=== PATIENT | male | born 1940 | race Caucasian/White ===

== ENCOUNTER 2022-03-05 13:56 | Inpatient (IN) | payer OTHER ==
[2022-03-05 14:30] VITALS: BMI 24.2
[2022-03-05 15:24] LABS: BASO % 0.5 % (0-2.0); EOS % 0.1 % (0-4.5); HEMATOCRIT 21.5 % (35.4-49); HEMOGLOBIN 7.5 GM/dL (11.7-16.9); LYMPH % 7.6 % (8-40); MCH 33.9 pg (25.7-33.7); MCHC 35.1 g/dl (32.0-35.9); MEAN CELL VOLUME 96.8 fl (80-96); MEAN PLT VOLUME 7.9 fl (7.5-11.1); MONO % 6.6 % (3.8-10.2); NEUT % 85.2 % (42.8-82.8); PLATELET COUNT 204 10^3/uL (134-434); RBC 2.22 M/mm3 (4.00-5.60); WHITE BLOOD COUNT 9.6 K/mm3 (4.0-10.0)
[2022-03-05 15:43] LABS: CHLORIDE 116 mmol/L (98-107); SODIUM 139 mmol/L (136-145)
[2022-03-05 15:45] LABS: CALCIUM 8.4 mg/dL (8.5-10.1)
[2022-03-05 15:46] LABS: BLOOD UREA NITROGEN 99.5 mg/dL (7-18); CO2 14 mmol/L (21-32); GLUCOSE,RANDOM 147 mg/dL (74-106)
[2022-03-05 15:49] LABS: CREATININE 3.1 mg/dL (0.55-1.3); SGOT/AST 8 U/L (15-37); SGPT/ALT 16 U/L (13-61)
[2022-03-05 15:50] LABS: TOT PROT 6.3 g/dl (6.4-8.2)
[2022-03-05 15:51] LABS: BILIRUBIN,TOTAL 1.4 mg/dL (0.2-1)
[2022-03-05 15:52] LABS: ALK PHOS 63 U/L (45-117)
[2022-03-05 15:57] LABS: ANION GAP 10 MMOL/L (8-16)
[2022-03-05] MEDS ORDERED: CALCIUM GLUC IN NACL, ISO-OSM 1 GM/50 ML BAG IVPB ONE ×2 (16:03→16:12)
[2022-03-05] MEDS ORDERED: DEXTROSE 50%-WATER - 25 GM/50 ML VIAL IVPUSH ONE ×2 (16:05→16:32)
[2022-03-05] MEDS ORDERED: INSULIN REGULAR HUMAN 100 UNITS/ML *VIAL IVPUSH ONE ×3 (16:06→16:32)
[2022-03-05] MEDS ORDERED: DEXTROSE 50%-WATER 25 GM/50 ML DISP.SYRIN ONE ×2 (16:11→16:37)
[2022-03-05] MEDS ORDERED: INSULIN REGULAR HUMAN 100 UNITS/ML *VIAL ONE ×2 (16:12→16:38)
[2022-03-05 16:29] LABS: MAGNESIUM 2.9 mg/dL (1.8-2.4)
[2022-03-05] MEDS ORDERED: SODIUM ZIRCONIUM CYCLOSILICATE (LOKELMA) 5 GM PACKET PO SCH ×2 (16:45→17:02)
[2022-03-05] MEDS ORDERED: SODIUM CHLORIDE 0.9% 500 ML INFUS.BAG IV ONE (16:46)
[2022-03-05] MEDS ORDERED: FUROSEMIDE 40 MG/4 ML INJECTABLE VIAL IVPUSH ONE (16:58)
[2022-03-05] MEDS ORDERED: SODIUM BICARBONATE 8.4% 50 MEQ/50 ML DISP.SYRIN IVPUSH ONE (17:09)
[2022-03-05] MEDS ORDERED: SODIUM BICARBONATE 8.4% - 50 ML ONE (18:17)
[2022-03-05] MEDS ORDERED: FUROSEMIDE 40 MG/4 ML INJECTABLE VIAL ONE (18:17)
[2022-03-05] MEDS ORDERED: ALBUTEROL SO4 2.5/IPRATROPIUM 0.5 INH SOL 3 ML VIAL.NEB. NEB ONE (18:17)
[2022-03-05] MEDS: ALBUTEROL SO4 0.083% IH SOL 2.5 MG/3 ML VIAL.NEB. NEB SCH ×4 (18:30→19:26)
[2022-03-05] MEDS ORDERED: LACTATED RINGERS SOLUTION 1,000 ML/1,000 ML INFUS.BAG IV SCH (18:30)
[2022-03-05 19:23] LABS: INR 1.11 (0.83-1.09); PROTHROMBIN TIME (PATIENT) 12.8 SEC (9.7-13.0)
[2022-03-05 19:26] LABS: ACTIVATED PTT 30.3 SECONDS (25.2-36.5)
[2022-03-05 19:27] LABS: IRON SERUM 104 ug/dL (50-175); TOTAL IRON BINDING CAPACITY 197 ug/dL (250-450)
[2022-03-05 20:35] LABS: URINE APPEARANCE CLEAR; URINE BILIRUBIN NEGATIVE (NEGATIVE); URINE COLOR YELLOW; URINE GLUCOSE (UA) NEGATIVE (NEGATIVE); URINE KETONE NEGATIVE (NEGATIVE); URINE LEUK ESTERASE NEGATIVE (NEGATIVE); URINE NITRITE NEGATIVE (NEGATIVE); URINE PROTEIN NEGATIVE (NEGATIVE); URINE UROBILINOGEN 0.2 mg/dL (0.2-1.0)
[2022-03-05] MEDS: MIRTAZAPINE 15 MG TABLET (FP) PO SCH (22:06)
[2022-03-05] MEDS: MEMANTINE HCL 10 MG TABLET (FP) PO SCH (22:06)
[2022-03-06 07:27] LABS: HEMATOCRIT 15.8 % (35.4-49); MCH 34.1 pg (25.7-33.7); MCHC 36.1 g/dl (32.0-35.9); MEAN CELL VOLUME 94.3 fl (80-96); MEAN PLT VOLUME 7.8 fl (7.5-11.1); PLATELET COUNT 150 10^3/uL (134-434); RBC 1.68 M/mm3 (4.00-5.60); RDW 16.2 % (11.9-15.9); WHITE BLOOD COUNT 3.6 K/mm3 (4.0-10.0)
[2022-03-06 07:56] LABS: CALCIUM 8.4 mg/dL (8.5-10.1)
[2022-03-06 07:57] LABS: ALBUMIN 3.3 g/dl (3.4-5.0); BLOOD UREA NITROGEN 97.6 mg/dL (7-18); MAGNESIUM 2.7 mg/dL (1.8-2.4)
[2022-03-06 08:00] LABS: CREATININE 2.3 mg/dL (0.55-1.3); PHOSPHOROUS 4.8 mg/dL (2.5-4.9)
[2022-03-06 08:01] LABS: TOT PROT 5.3 g/dl (6.4-8.2)
[2022-03-06 08:25] LABS: HEMOGLOBIN 5.7 GM/dL (11.7-16.9)
[2022-03-06] MEDS ORDERED: SODIUM CHLORIDE 500 ML IV STA (09:30)
[2022-03-06] MEDS ORDERED: LACTATED RINGERS SOLUTION 1,000 ML/1,000 ML INFUS.BAG IV SCH (09:45)
[2022-03-06] MEDS: MEMANTINE HCL 10 MG TABLET (FP) PO SCH ×2 (09:45→22:16)
[2022-03-06] MEDS: DONEPEZIL HCL 10 MG TABLET (FP) PO SCH (09:45)
[2022-03-06] MEDS ORDERED: NIFEdipine E.R. 90 MG TABLET PO SCH (10:00)
[2022-03-06] MEDS ORDERED: SODIUM ZIRCONIUM CYCLOSILICATE (LOKELMA) 5 GM PACKET PO ONE ×2 (12:45→15:53)
[2022-03-06 17:29] LABS: ANISOCYTOSIS 2+; MACROCYTOSIS 0
[2022-03-06 17:45] LABS: LDH 108 U/L (87-246)
[2022-03-06] MEDS: MIRTAZAPINE 15 MG TABLET (FP) PO SCH (22:16)
[2022-03-07 07:23] LABS: BASO % 0.7 % (0-2.0); EOS % 1.2 % (0-4.5); HEMATOCRIT 24.6 % (35.4-49); HEMOGLOBIN 8.9 GM/dL (11.7-16.9); LYMPH % 20.3 % (8-40); MCH 31.5 pg (25.7-33.7); MCHC 36.1 g/dl (32.0-35.9); MEAN PLT VOLUME 7.8 fl (7.5-11.1); MONO % 9.9 % (3.8-10.2); NEUT % 67.9 % (42.8-82.8); PLATELET COUNT 159 10^3/uL (134-434); RBC 2.82 M/mm3 (4.00-5.60); RDW 24.7 % (11.9-15.9)
[2022-03-07 07:30] LABS: MEAN CELL VOLUME 87.2 fl (80-96)
[2022-03-07 07:45] LABS: CALCIUM 8.2 mg/dL (8.5-10.1)
[2022-03-07 07:46] LABS: ALBUMIN 3.4 g/dl (3.4-5.0); MAGNESIUM 2.3 mg/dL (1.8-2.4)
[2022-03-07 07:49] LABS: CREATININE 1.3 mg/dL (0.55-1.3); PHOSPHOROUS 3.3 mg/dL (2.5-4.9)
[2022-03-07] MEDS ORDERED: SODIUM ZIRCONIUM CYCLOSILICATE (LOKELMA) 5 GM PACKET PO ONE (07:49)
[2022-03-07 07:50] LABS: BILIRUBIN,TOTAL 2.1 mg/dL (0.2-1); TOT PROT 5.1 g/dl (6.4-8.2)
[2022-03-07 07:54] LABS: BLOOD UREA NITROGEN 58.2 mg/dL (7-18)
[2022-03-07 09:18] LABS: ANISOCYTOSIS 2+; MACROCYTOSIS 1+; OVALOCYTE 1+
[2022-03-07] MEDS: DONEPEZIL HCL 10 MG TABLET (FP) PO SCH (10:15)
[2022-03-07] MEDS: MEMANTINE HCL 10 MG TABLET (FP) PO SCH ×2 (10:16→21:10)
[2022-03-07] MEDS ORDERED: QUEtiapine FUMARATE 25 MG TABLET PO STA (14:51)
[2022-03-07 15:29] LABS: BASO % 0.6 % (0-2.0); EOS % 1.2 % (0-4.5); HEMATOCRIT 25.4 % (35.4-49); LYMPH % 17.7 % (8-40); MCHC 35.4 g/dl (32.0-35.9); MEAN CELL VOLUME 87.4 fl (80-96); MEAN PLT VOLUME 6.9 fl (7.5-11.1); MONO % 10.8 % (3.8-10.2); NEUT % 69.7 % (42.8-82.8); PLATELET COUNT 155 10^3/uL (134-434); RBC 2.91 M/mm3 (4.00-5.60); RDW 23.8 % (11.9-15.9); WHITE BLOOD COUNT 5.1 K/mm3 (4.0-10.0)
[2022-03-07] MEDS: QUEtiapine FUMARATE 25 MG TABLET PO SCH (21:10)
[2022-03-07] MEDS: MIRTAZAPINE 15 MG TABLET (FP) PO SCH (21:10)
[2022-03-08 09:04] LABS: BASO % 0.7 % (0-2.0); EOS % 2.1 % (0-4.5); HEMATOCRIT 25.6 % (35.4-49); HEMOGLOBIN 9.1 GM/dL (11.7-16.9); LYMPH % 14.2 % (8-40); MCH 31.3 pg (25.7-33.7); MCHC 35.6 g/dl (32.0-35.9); MEAN PLT VOLUME 7.5 fl (7.5-11.1); MONO % 9.6 % (3.8-10.2); NEUT % 73.4 % (42.8-82.8); PLATELET COUNT 160 10^3/uL (134-434); RBC 2.91 M/mm3 (4.00-5.60); RDW 23.2 % (11.9-15.9); WHITE BLOOD COUNT 4.8 K/mm3 (4.0-10.0)
[2022-03-08] MEDS: MEMANTINE HCL 10 MG TABLET (FP) PO SCH ×2 (09:15→22:20)
[2022-03-08] MEDS: SODIUM ZIRCONIUM CYCLOSILICATE (LOKELMA) 5 GM PACKET PO SCH (09:15)
[2022-03-08] MEDS: DONEPEZIL HCL 10 MG TABLET (FP) PO SCH (09:15)
[2022-03-08 09:38] LABS: CALCIUM 8.4 mg/dL (8.5-10.1)
[2022-03-08 09:39] LABS: ALBUMIN 3.5 g/dl (3.4-5.0); BLOOD UREA NITROGEN 41.1 mg/dL (7-18); MAGNESIUM 2.2 mg/dL (1.8-2.4)
[2022-03-08 09:42] LABS: BILIRUBIN,TOTAL 1.7 mg/dL (0.2-1); CREATININE 1.2 mg/dL (0.55-1.3); PHOSPHOROUS 3.3 mg/dL (2.5-4.9)
[2022-03-08 09:43] LABS: TOT PROT 5.3 g/dl (6.4-8.2)
[2022-03-08 18:13] LABS: BILIRUBIN,DIRECT 0.3 mg/dL (0.0-0.2)
[2022-03-08] MEDS: QUEtiapine FUMARATE 25 MG TABLET PO SCH (22:21)
[2022-03-08] MEDS: MIRTAZAPINE 15 MG TABLET (FP) PO SCH (22:21)
[2022-03-09 08:10] LABS: BASO % 0.6 % (0-2.0); EOS % 2.3 % (0-4.5); HEMATOCRIT 24.2 % (35.4-49); HEMOGLOBIN 8.8 GM/dL (11.7-16.9); MCH 31.8 pg (25.7-33.7); MCHC 36.2 g/dl (32.0-35.9); MEAN CELL VOLUME 87.7 fl (80-96); MEAN PLT VOLUME 7.7 fl (7.5-11.1); MONO % 10.5 % (3.8-10.2); NEUT % 66.6 % (42.8-82.8); PLATELET COUNT 165 10^3/uL (134-434); RBC 2.76 M/mm3 (4.00-5.60); RDW 22.7 % (11.9-15.9); WHITE BLOOD COUNT 4.5 K/mm3 (4.0-10.0)
[2022-03-09 08:22] LABS: CALCIUM 8.3 mg/dL (8.5-10.1)
[2022-03-09 08:23] LABS: ALBUMIN 3.2 g/dl (3.4-5.0); BLOOD UREA NITROGEN 36.8 mg/dL (7-18); MAGNESIUM 2.2 mg/dL (1.8-2.4)
[2022-03-09 08:26] LABS: CREATININE 1.2 mg/dL (0.55-1.3); PHOSPHOROUS 3.6 mg/dL (2.5-4.9)
[2022-03-09 08:28] LABS: BILIRUBIN,TOTAL 1.1 mg/dL (0.2-1)
[2022-03-09] MEDS: DONEPEZIL HCL 10 MG TABLET (FP) PO SCH (10:01)
[2022-03-09] MEDS: MEMANTINE HCL 10 MG TABLET (FP) PO SCH ×2 (10:01→21:11)
[2022-03-09] MEDS: SODIUM ZIRCONIUM CYCLOSILICATE (LOKELMA) 5 GM PACKET PO SCH (10:02)
[2022-03-09] MEDS: QUEtiapine FUMARATE 25 MG TABLET PO SCH (21:11)
[2022-03-09] MEDS: MIRTAZAPINE 15 MG TABLET (FP) PO SCH (21:11)
[2022-03-10 07:23] LABS: ALBUMIN 3.2 g/dl (3.4-5.0); BLOOD UREA NITROGEN 30.3 mg/dL (7-18); CALCIUM 8.6 mg/dL (8.5-10.1); MAGNESIUM 2.2 mg/dL (1.8-2.4)
[2022-03-10 07:24] LABS: BASO % 0.4 % (0-2.0); HEMATOCRIT 25.4 % (35.4-49); HEMOGLOBIN 9.1 GM/dL (11.7-16.9); LYMPH % 16.4 % (8-40); MEAN CELL VOLUME 88.9 fl (80-96); MEAN PLT VOLUME 7.7 fl (7.5-11.1); MONO % 11.6 % (3.8-10.2); NEUT % 69.6 % (42.8-82.8); PLATELET COUNT 156 10^3/uL (134-434); RBC 2.85 M/mm3 (4.00-5.60); RDW 22.5 % (11.9-15.9)
[2022-03-10 07:25] LABS: CREATININE 1.1 mg/dL (0.55-1.3)
[2022-03-10 07:27] LABS: PHOSPHOROUS 3.6 mg/dL (2.5-4.9)
[2022-03-10 07:28] LABS: BILIRUBIN,TOTAL 1.1 mg/dL (0.2-1)
[2022-03-10] MEDS: MEMANTINE HCL 10 MG TABLET (FP) PO SCH ×2 (09:54→21:53)
[2022-03-10] MEDS: DONEPEZIL HCL 10 MG TABLET (FP) PO SCH (09:54)
[2022-03-10 21:28] VITALS: PULSE 80
[2022-03-10] MEDS: MIRTAZAPINE 15 MG TABLET (FP) PO SCH (21:53)
[2022-03-10] MEDS: QUEtiapine FUMARATE 25 MG TABLET PO SCH (21:53)
[2022-03-11 09:12] VITALS: BP 142/59; RESP 16; TEMP 98.5
[2022-03-11] MEDS: DONEPEZIL HCL 10 MG TABLET (FP) PO SCH (09:37)
[2022-03-11] MEDS: MEMANTINE HCL 10 MG TABLET (FP) PO SCH (09:37)
== END 2022-03-11 12:36 | disposition home or self-care (01) | DRG 812 ==
LOC: JER 13:56 → JERBED 16:48 → J4W 20:51
PROVIDERS: ADMIT Internal Medicine; ATTEND Internal Medicine
PROC: 30233N1 Transfusion of Nonautologous Red Blood Cells into Peripheral Vein, Percutaneous Approach (ICD-10-PCS; principal; 2022-03-06)
DX: D62 Acute posthemorrhagic anemia (principal); N17.9 Acute kidney failure, unspecified; E87.2 Acidosis; E87.5 Hyperkalemia; I10 Essential (primary) hypertension; F32.9 Major depressive disorder, single episode, unspecified; K59.00 Constipation, unspecified; G30.9 Alzheimer's disease, unspecified; F02.80 Dementia in other diseases classified elsewhere, unspecified severity, without behavioral disturbance, psychotic disturbance, mood disturbance, and anxiety; F32.A Depression, unspecified; R26.81 Unsteadiness on feet
CPT/HCPCS: 36415; 36430; 71045-TC-FY; 76775-TC; 80053; 81003; 82248; 82272; 82570; 82607; 82728; 82746; 83010; 83540; 83550; 83615; 83735; 84100; 84156; 84300; 84550; 85025; 85027; 85045; 85610; 85730; 86850; 86900; 86901; 86922; 87086; 93005; 93010; 93306-TC; 99285-25; C9803-CS; P9058; U0003; U0005

== ENCOUNTER 2024-01-06 12:07 | Observation (INO) | payer OTHER ==
[2024-01-06 14:49] LABS: INR 1.04 (0.83-1.09); PROTHROMBIN TIME (PATIENT) 11.9 SEC (9.7-13.0)
[2024-01-06 15:05] LABS: BASO % 0.6 % (0-2.0); EOS % 1.2 % (0-4.5); HEMATOCRIT 29.5 % (35.4-49); HEMOGLOBIN 10.8 GM/dL (11.7-16.9); MCH 32.9 pg (25.7-33.7); MCHC 36.5 g/dl (32.0-35.9); MEAN CELL VOLUME 90.2 fl (80-96); MEAN PLT VOLUME 7.6 fl (7.5-11.1); MONO % 8.8 % (3.8-10.2); NEUT % 70.4 % (42.8-82.8); PLATELET COUNT 177 10^3/uL (134-434); RBC 3.27 M/mm3 (4.00-5.60); RDW 16.2 % (11.9-15.9); WHITE BLOOD COUNT 8.6 K/mm3 (4.0-10.0)
[2024-01-06 15:08] LABS: POTASSIUM 4.9 mmol/L (3.5-5.1)
[2024-01-06 15:10] LABS: CALCIUM 9.1 mg/dL (8.5-10.1)
[2024-01-06 15:11] LABS: ALBUMIN 4.4 g/dl (3.4-5.0); BLOOD UREA NITROGEN 32.4 mg/dL (7-18)
[2024-01-06 15:13] LABS: CREATININE 1.3 mg/dL (0.55-1.3)
[2024-01-06 15:15] LABS: BILIRUBIN,TOTAL 1.9 mg/dL (0.2-1); TOT PROT 7.1 g/dl (6.4-8.2)
[2024-01-06] MEDS ORDERED: CEFAZOLIN SODIUM 2 GM VIAL ONE (16:24)
[2024-01-06] MEDS: CEFAZOLIN SODIUM 2 GM VIAL IVPB ONE (16:50)
[2024-01-06] MEDS: OLANZapine 5 MG TABLET PO ONE ×2 (20:46→22:46)
[2024-01-07] MEDS ORDERED: ACETAMINOPHEN 325 MG TABLET (FP) PO PRN (02:48)
[2024-01-07] MEDS ORDERED: CEFAZOLIN SODIUM 2 GM VIAL ONE ×2 (03:05→09:40)
[2024-01-07] MEDS: CEFAZOLIN SODIUM 2 GM in DEXTROSE 5%-WATER 100 ML IVPB SCH ×2 (03:35→17:15)
[2024-01-07 07:24] LABS: BASO % 0.9 % (0-2.0); HEMATOCRIT 28.6 % (35.4-49); HEMOGLOBIN 10.4 GM/dL (11.7-16.9); LYMPH % 25.7 % (8-40); MCH 32.5 pg (25.7-33.7); MCHC 36.3 g/dl (32.0-35.9); MEAN CELL VOLUME 89.6 fl (80-96); MEAN PLT VOLUME 7.5 fl (7.5-11.1); MONO % 8.2 % (3.8-10.2); NEUT % 64.2 % (42.8-82.8); PLATELET COUNT 164 10^3/uL (134-434); RDW 16.1 % (11.9-15.9); WHITE BLOOD COUNT 5.7 K/mm3 (4.0-10.0)
[2024-01-07 07:41] LABS: POTASSIUM 4.4 mmol/L (3.5-5.1)
[2024-01-07 07:44] LABS: BLOOD UREA NITROGEN 30.3 mg/dL (7-18); CALCIUM 8.8 mg/dL (8.5-10.1); MAGNESIUM 2.3 mg/dL (1.8-2.4)
[2024-01-07 07:48] LABS: CREATININE 1.2 mg/dL (0.55-1.3); PHOSPHOROUS 3.5 mg/dL (2.5-4.9)
[2024-01-07 09:30] LABS: URIC ACID 5.9 mg/dL (2.6-7.2)
[2024-01-07] MEDS ORDERED: LOSARTAN POTASSIUM 50 MG TABLET ONE (09:39)
[2024-01-07] MEDS ORDERED: NIFEdipine E.R. 30 MG TABLET PO ONE (09:39)
[2024-01-07] MEDS ORDERED: DONEPEZIL HCL 5 MG TABLET (FP) ONE (09:39)
[2024-01-07] MEDS ORDERED: CHOLECALCIFEROL (VIT D3) 1,000 UNIT (25 MCG) TABLET ONE (09:39)
[2024-01-07] MEDS ORDERED: ASPIRIN 81 MG CHEWABLE TABLETS ONE (09:39)
[2024-01-07] MEDS ORDERED: MIRTAZAPINE 15 MG TABLET (FP) ONE (09:40)
[2024-01-07] MEDS: ASPIRIN 81 MG CHEWABLE TABLETS PO SCH (09:44)
[2024-01-07] MEDS: LOSARTAN POTASSIUM 50 MG TABLET PO SCH (09:48)
[2024-01-07] MEDS: NIFEdipine E.R. 90 MG TABLET PO SCH (09:48)
[2024-01-07] MEDS: POLYETHYLENE GLYCOL (HEALTHYLAX) 3350 17 GM PACKET PO SCH (09:48)
[2024-01-07] MEDS: CHOLECALCIFEROL (VIT D3) 1,000 UNIT (25 MCG) TABLET PO SCH (09:48)
[2024-01-07 17:17] VITALS: BMI 20.8
[2024-01-07] MEDS ORDERED: DONEPEZIL HCL 5 MG TABLET (FP) PO SCH (18:00)
[2024-01-07] MEDS ORDERED: MIRTAZAPINE 15 MG TABLET (FP) PO SCH (22:00)
[2024-01-08 07:36] LABS: POTASSIUM 4.7 mmol/L (3.5-5.1)
[2024-01-08 07:44] LABS: CALCIUM 9.1 mg/dL (8.5-10.1)
[2024-01-08 07:45] LABS: BLOOD UREA NITROGEN 37.1 mg/dL (7-18)
[2024-01-08 07:46] LABS: BASO % 0.7 % (0-2.0); EOS % 0.2 % (0-4.5); HEMATOCRIT 29.7 % (35.4-49); HEMOGLOBIN 10.7 GM/dL (11.7-16.9); LYMPH % 7.5 % (8-40); MCH 32.6 pg (25.7-33.7); MCHC 36.1 g/dl (32.0-35.9); MEAN CELL VOLUME 90.2 fl (80-96); MEAN PLT VOLUME 7.9 fl (7.5-11.1); MONO % 8.5 % (3.8-10.2); NEUT % 83.1 % (42.8-82.8); PLATELET COUNT 175 10^3/uL (134-434); RBC 3.29 M/mm3 (4.00-5.60); RDW 15.9 % (11.9-15.9); WHITE BLOOD COUNT 8.8 K/mm3 (4.0-10.0)
[2024-01-08 07:48] LABS: CREATININE 1.3 mg/dL (0.55-1.3)
[2024-01-08] MEDS: LOSARTAN POTASSIUM 50 MG TABLET PO SCH (09:37)
[2024-01-08] MEDS: NIFEdipine E.R. 90 MG TABLET PO SCH (09:38)
[2024-01-08] MEDS: ASPIRIN 81 MG CHEWABLE TABLETS PO SCH (09:38)
[2024-01-08] MEDS: CHOLECALCIFEROL (VIT D3) 1,000 UNIT (25 MCG) TABLET PO SCH (09:38)
[2024-01-08] MEDS: ALLOPURINOL 100 MG TABLET (FP) PO SCH (09:38)
[2024-01-08] MEDS: DONEPEZIL HCL 5 MG TABLET (FP) PO SCH (09:38)
[2024-01-08] MEDS: POLYETHYLENE GLYCOL (HEALTHYLAX) 3350 17 GM PACKET PO SCH (09:38)
[2024-01-08] MEDS ORDERED: PATIENT'S OWN MEDICATION (NON-FORMULARY) (Losartan Potassium [Cozaar] 100 MG) PO SCH (10:00)
[2024-01-08] MEDS ORDERED: CEPHALEXIN MONOHYDRATE 500 MG CAPSULE (UD) PO SCH (14:00)
[2024-01-08] MEDS: ATORVASTATIN CA 10 MG TABLET (FP) PO SCH (21:29)
[2024-01-08] MEDS: MIRTAZAPINE 15 MG TABLET (FP) PO SCH (21:29)
[2024-01-09 08:03] LABS: BASO % 0.6 % (0-2.0); EOS % 1.3 % (0-4.5); HEMATOCRIT 24.1 % (35.4-49); HEMOGLOBIN 8.8 GM/dL (11.7-16.9); LYMPH % 20.2 % (8-40); MCH 32.7 pg (25.7-33.7); MCHC 36.4 g/dl (32.0-35.9); MEAN CELL VOLUME 89.7 fl (80-96); MEAN PLT VOLUME 7.5 fl (7.5-11.1); MONO % 8.6 % (3.8-10.2); NEUT % 69.3 % (42.8-82.8); PLATELET COUNT 159 10^3/uL (134-434); RBC 2.68 M/mm3 (4.00-5.60); RDW 15.3 % (11.9-15.9); WHITE BLOOD COUNT 4.7 K/mm3 (4.0-10.0)
[2024-01-09 08:15] LABS: POTASSIUM 4.1 mmol/L (3.5-5.1)
[2024-01-09 08:16] LABS: CALCIUM 8.5 mg/dL (8.5-10.1)
[2024-01-09 08:17] LABS: BLOOD UREA NITROGEN 34.6 mg/dL (7-18)
[2024-01-09 08:20] LABS: CREATININE 1.2 mg/dL (0.55-1.3)
[2024-01-09] MEDS: ACETAMINOPHEN 325 MG TABLET (FP) PO PRN (21:32)
[2024-01-10] MEDS: NIFEdipine E.R 60 MG TABLET PO SCH (09:59)
[2024-01-10] MEDS: CEPHALEXIN MONOHYDRATE 500 MG CAPSULE (UD) PO SCH (21:05)
[2024-01-10] MEDS: QUEtiapine FUMARATE 25 MG TABLET PO SCH (21:06)
[2024-01-11 14:35] VITALS: BP 123/75; PULSE 73; RESP 20; TEMP 98.2
== END 2024-01-11 16:44 ==
LOC: JER 12:07 → JERBED 01-07 02:08 → J7W 01-07 13:34
PROVIDERS: ADMIT Internal Medicine; ATTEND Internal Medicine
DX: L03.115 Cellulitis of right lower limb (principal); R55 Syncope and collapse; G30.9 Alzheimer's disease, unspecified; I65.29 Occlusion and stenosis of unspecified carotid artery; I70.90 Unspecified atherosclerosis; W18.39XA Other fall on same level, initial encounter; Y93.89 Activity, other specified; Y92.098 Other place in other non-institutional residence as the place of occurrence of the external cause; I10 Essential (primary) hypertension
CPT/HCPCS: 36415; 70450-TC; 71045-TC-FY; 72125-TC; 73610-TC-RT-FY; 73630-TC-RT-FY; 80048; 80053; 80061; 82550; 82553; 83036; 83735; 84100; 84443; 84484; 84550; 85025; 85610; 85730; 86140; 86850; 86900; 86901; 87635; 93005; 93010; 93880-TC; 93970-TC; 96365; 96375; 97116-GP; 97162-GP; 99285-25; G0378

== ENCOUNTER 2024-03-31 15:55 | Inpatient (IN) | payer OTHER ==
[2024-03-31] MEDS: SODIUM CHLORIDE 1,000 ML IV STA ×2 (16:40→18:35)
[2024-03-31 17:04] LABS: BASO % 0.3 % (0-2.0); EOS % 0.3 % (0-4.5); HEMATOCRIT 19.9 % (35.4-49); HEMOGLOBIN 7.2 GM/dL (11.7-16.9); INR 1.06 (0.83-1.09); MCH 31.9 pg (25.7-33.7); MCHC 35.9 g/dl (32.0-35.9); MEAN CELL VOLUME 88.8 fl (80-96); MEAN PLT VOLUME 7.6 fl (7.5-11.1); MONO % 11.6 % (3.8-10.2); NEUT % 75.8 % (42.8-82.8); PLATELET COUNT 106 10^3/uL (134-434); RBC 2.25 M/mm3 (4.00-5.60); RDW 19.1 % (11.9-15.9); WHITE BLOOD COUNT 4.8 K/mm3 (4.0-10.0)
[2024-03-31 17:07] LABS: ACTIVATED PTT 25.6 SECONDS (25.2-36.5)
[2024-03-31 17:48] LABS: POTASSIUM 5.4 mmol/L (3.5-5.1)
[2024-03-31 17:50] LABS: ALBUMIN 3.4 g/dl (3.4-5.0); BLOOD UREA NITROGEN 58.1 mg/dL (7-18); CALCIUM 8.6 mg/dL (8.5-10.1)
[2024-03-31 17:53] LABS: CREATININE 2.7 mg/dL (0.55-1.3)
[2024-03-31 17:55] LABS: BILIRUBIN,TOTAL 1.5 mg/dL (0.2-1); TOT PROT 5.6 g/dl (6.4-8.2)
[2024-03-31 19:26] LABS: EPI CELLS 13 /uL (0-25.1); HYALINE CASTS 8 /uL (0-3.1); URINE APPEARANCE CLOUDY; URINE BACTERIA 4 /uL (0-1359); URINE BILIRUBIN 1+ (NEGATIVE); URINE COLOR DK YELLOW; URINE GLUCOSE (UA) NEGATIVE (NEGATIVE); URINE KETONE TRACE (NEGATIVE); URINE LEUK ESTERASE NEGATIVE (NEGATIVE); URINE NITRITE NEGATIVE (NEGATIVE); URINE PROTEIN 1+ (NEGATIVE); URINE RBC 28 /uL (0-23.9); URINE WBC 9 /uL (0-25.8)
[2024-03-31 20:29] LABS: URINE CRYSTALS PRESENT /hpf
[2024-04-01] MEDS: SODIUM CHLORIDE 0.45% 1,000 ML IV SCH (02:30)
[2024-04-01] MEDS ORDERED: DOCUSATE SODIUM 100 MG CAPSULE (FP) PO PRN (03:01)
[2024-04-01] MEDS: HALOPERIDOL LACTATE 5 MG/ML IM ONE ×2 (03:02→20:55)
[2024-04-01] MEDS: SODIUM CHLORIDE 1,000 ML IV SCH ×2 (03:50→10:56)
[2024-04-01] MEDS ORDERED: POLYETHYLENE GLYCOL (HEALTHYLAX) 3350 17 GM PACKET ONE (09:48)
[2024-04-01] MEDS: CHOLECALCIFEROL (VIT D3) 1,000 UNIT (25 MCG) TABLET PO SCH (09:51)
[2024-04-01] MEDS: POLYETHYLENE GLYCOL (HEALTHYLAX) 3350 17 GM PACKET PO SCH (09:51)
[2024-04-01] MEDS: ALLOPURINOL 100 MG TABLET (FP) PO SCH (09:51)
[2024-04-01] MEDS ORDERED: LOSARTAN POTASSIUM 50 MG TABLET PO SCH (10:00)
[2024-04-01 10:44] LABS: BASO % 0.3 % (0-2.0); EOS % 0.1 % (0-4.5); HEMATOCRIT 21.5 % (35.4-49); HEMOGLOBIN 7.7 GM/dL (11.7-16.9); LYMPH % 11.9 % (8-40); MCH 31.4 pg (25.7-33.7); MCHC 35.5 g/dl (32.0-35.9); MEAN CELL VOLUME 88.4 fl (80-96); MEAN PLT VOLUME 7.5 fl (7.5-11.1); MONO % 9.5 % (3.8-10.2); NEUT % 78.2 % (42.8-82.8); PLATELET COUNT 106 10^3/uL (134-434); RBC 2.44 M/mm3 (4.00-5.60); WHITE BLOOD COUNT 4.4 K/mm3 (4.0-10.0)
[2024-04-01 11:08] LABS: POTASSIUM 5.2 mmol/L (3.5-5.1)
[2024-04-01 11:18] LABS: ALBUMIN 3.2 g/dl (3.4-5.0); BLOOD UREA NITROGEN 42.8 mg/dL (7-18); CALCIUM 8.5 mg/dL (8.5-10.1)
[2024-04-01 11:21] LABS: CREATININE 1.3 mg/dL (0.55-1.3)
[2024-04-01 11:22] LABS: TOT PROT 5.2 g/dl (6.4-8.2)
[2024-04-01 11:23] LABS: BILIRUBIN,TOTAL 1.5 mg/dL (0.2-1)
[2024-04-01] MEDS: REMDESIVIR 200 MG in SODIUM CHLORIDE 250 ML IVPB ONE (12:23)
[2024-04-01] MEDS: SODIUM ZIRCONIUM CYCLOSILICATE (LOKELMA) 5 GM PACKET PO SCH (12:24)
[2024-04-01] MEDS: ATORVASTATIN CA 10 MG TABLET (FP) PO SCH (21:12)
[2024-04-01] MEDS: MIRTAZAPINE 15 MG TABLET (FP) PO SCH (21:12)
[2024-04-01] MEDS: DONEPEZIL HCL 5 MG TABLET (FP) PO SCH (21:12)
[2024-04-02 07:26] LABS: BASO % 0.4 % (0-2.0); EOS % 0.1 % (0-4.5); HEMOGLOBIN 8.1 GM/dL (11.7-16.9); LYMPH % 10.6 % (8-40); MCH 30.8 pg (25.7-33.7); MCHC 35.1 g/dl (32.0-35.9); MEAN CELL VOLUME 87.7 fl (80-96); MEAN PLT VOLUME 7.5 fl (7.5-11.1); MONO % 8.7 % (3.8-10.2); NEUT % 80.2 % (42.8-82.8); PLATELET COUNT 123 10^3/uL (134-434); RBC 2.62 M/mm3 (4.00-5.60); WHITE BLOOD COUNT 5.1 K/mm3 (4.0-10.0)
[2024-04-02 07:56] LABS: POTASSIUM 4.5 mmol/L (3.5-5.1)
[2024-04-02 08:02] LABS: CALCIUM 8.5 mg/dL (8.5-10.1); MAGNESIUM 2.2 mg/dL (1.8-2.4)
[2024-04-02 08:03] LABS: ALBUMIN 3.1 g/dl (3.4-5.0)
[2024-04-02 08:06] LABS: PHOSPHOROUS 3.5 mg/dL (2.5-4.9)
[2024-04-02 08:07] LABS: BILIRUBIN,TOTAL 1.8 mg/dL (0.2-1)
[2024-04-02] MEDS: REMDESIVIR 100 MG in SODIUM CHLORIDE 250 ML IVPB SCH (13:44)
[2024-04-02] MEDS: LACTATED RINGERS SOLUTION 1,000 ML/1,000 ML INFUS.BAG IV SCH (17:34)
[2024-04-02] MEDS: TAMSULOSIN HCL 0.4 MG CAP PO ONE (17:34)
[2024-04-03 10:22] LABS: BASO % 0.4 % (0-2.0); EOS % 0.1 % (0-4.5); HEMATOCRIT 22.7 % (35.4-49); HEMOGLOBIN 8.1 GM/dL (11.7-16.9); LYMPH % 7.2 % (8-40); MCH 31.2 pg (25.7-33.7); MCHC 35.4 g/dl (32.0-35.9); MEAN CELL VOLUME 87.9 fl (80-96); MEAN PLT VOLUME 7.7 fl (7.5-11.1); MONO % 7.6 % (3.8-10.2); NEUT % 84.7 % (42.8-82.8); PLATELET COUNT 127 10^3/uL (134-434); RBC 2.59 M/mm3 (4.00-5.60); RDW 17.3 % (11.9-15.9); WHITE BLOOD COUNT 6.1 K/mm3 (4.0-10.0)
[2024-04-03 10:57] LABS: POTASSIUM 4.1 mmol/L (3.5-5.1)
[2024-04-03 10:58] LABS: CALCIUM 8.5 mg/dL (8.5-10.1)
[2024-04-03 10:59] LABS: BLOOD UREA NITROGEN 34.6 mg/dL (7-18)
[2024-04-03] MEDS: TAMSULOSIN HCL 0.4 MG CAP PO SCH (12:09)
[2024-04-04 07:59] LABS: BASO % 0.3 % (0-2.0); EOS % 0.3 % (0-4.5); HEMATOCRIT 23.4 % (35.4-49); HEMOGLOBIN 8.3 GM/dL (11.7-16.9); LYMPH % 9.9 % (8-40); MCH 30.5 pg (25.7-33.7); MCHC 35.3 g/dl (32.0-35.9); MEAN CELL VOLUME 86.5 fl (80-96); MEAN PLT VOLUME 7.5 fl (7.5-11.1); MONO % 9.2 % (3.8-10.2); NEUT % 80.3 % (42.8-82.8); PLATELET COUNT 142 10^3/uL (134-434); RDW 17.5 % (11.9-15.9); WHITE BLOOD COUNT 5.5 K/mm3 (4.0-10.0)
[2024-04-04 08:15] LABS: POTASSIUM 3.9 mmol/L (3.5-5.1)
[2024-04-04 08:21] LABS: CALCIUM 8.6 mg/dL (8.5-10.1)
[2024-04-04 08:22] LABS: BLOOD UREA NITROGEN 27.4 mg/dL (7-18)
[2024-04-04 08:25] LABS: CREATININE 0.9 mg/dL (0.55-1.3)
[2024-04-04] MEDS: POTASSIUM CHLORIDE 10 MEQ in DEXTROSE 5%-WATER - 1,000 ML IV SCH (18:16)
[2024-04-05 08:07] LABS: POTASSIUM 3.6 mmol/L (3.5-5.1)
[2024-04-05 08:12] LABS: ALBUMIN 2.8 g/dl (3.4-5.0); BLOOD UREA NITROGEN 19.1 mg/dL (7-18); CALCIUM 8.2 mg/dL (8.5-10.1)
[2024-04-05 08:15] LABS: CREATININE 0.9 mg/dL (0.55-1.3)
[2024-04-05 08:17] LABS: TOT PROT 4.6 g/dl (6.4-8.2)
[2024-04-05 09:01] LABS: BASO % 0.2 % (0-2.0); EOS % 0.6 % (0-4.5); HEMATOCRIT 25.3 % (35.4-49); HEMOGLOBIN 8.9 GM/dL (11.7-16.9); LYMPH % 10.7 % (8-40); MCH 30.9 pg (25.7-33.7); MCHC 35.4 g/dl (32.0-35.9); MEAN CELL VOLUME 87.3 fl (80-96); MEAN PLT VOLUME 7.8 fl (7.5-11.1); MONO % 8.9 % (3.8-10.2); NEUT % 79.6 % (42.8-82.8); PLATELET COUNT 163 10^3/uL (134-434); RDW 17.3 % (11.9-15.9); WHITE BLOOD COUNT 6.1 K/mm3 (4.0-10.0)
[2024-04-06] MEDS: QUEtiapine FUMARATE 25 MG TABLET PO SCH (14:50)
[2024-04-06 15:53] VITALS: BMI 20.7
[2024-04-07 07:15] LABS: BASO % 0.5 % (0-2.0); EOS % 2.8 % (0-4.5); HEMATOCRIT 25.9 % (35.4-49); HEMOGLOBIN 9.2 GM/dL (11.7-16.9); LYMPH % 11.4 % (8-40); MCH 31.3 pg (25.7-33.7); MCHC 35.6 g/dl (32.0-35.9); MEAN CELL VOLUME 87.9 fl (80-96); MEAN PLT VOLUME 7.2 fl (7.5-11.1); MONO % 9.6 % (3.8-10.2); NEUT % 75.7 % (42.8-82.8); PLATELET COUNT 189 10^3/uL (134-434); RBC 2.95 M/mm3 (4.00-5.60); RDW 18.4 % (11.9-15.9)
[2024-04-07 07:33] LABS: POTASSIUM 3.7 mmol/L (3.5-5.1)
[2024-04-07 07:35] LABS: BLOOD UREA NITROGEN 11.7 mg/dL (7-18); CALCIUM 8.2 mg/dL (8.5-10.1)
[2024-04-07 07:38] LABS: CREATININE 0.8 mg/dL (0.55-1.3)
[2024-04-07] MEDS: MULTIVITAMINS (DAILY MVI) TABLET (FP) PO SCH (11:13)
[2024-04-07] MEDS: LOSARTAN POTASSIUM 25 MG TABLET PO SCH (13:48)
[2024-04-07] MEDS: POTASSIUM CHLORIDE 10 MEQ in DEXTROSE 5%-WATER - 1,000 ML IV SCH (21:02)
[2024-04-08] MEDS: ACETAMINOPHEN 325 MG TABLET (FP) PO PRN (21:34)
[2024-04-10 08:21] LABS: BASO % 0.5 % (0-2.0); EOS % 2.5 % (0-4.5); HEMATOCRIT 31.9 % (35.4-49); HEMOGLOBIN 11.5 GM/dL (11.7-16.9); LYMPH % 11.6 % (8-40); MCH 31.4 pg (25.7-33.7); MEAN CELL VOLUME 87.4 fl (80-96); MEAN PLT VOLUME 7.2 fl (7.5-11.1); MONO % 8.9 % (3.8-10.2); NEUT % 76.5 % (42.8-82.8); PLATELET COUNT 236 10^3/uL (134-434); RBC 3.65 M/mm3 (4.00-5.60); RDW 19.1 % (11.9-15.9); WHITE BLOOD COUNT 8.6 K/mm3 (4.0-10.0)
[2024-04-10 08:34] LABS: POTASSIUM 4.2 mmol/L (3.5-5.1)
[2024-04-10 08:39] LABS: BLOOD UREA NITROGEN 14.3 mg/dL (7-18); CALCIUM 8.6 mg/dL (8.5-10.1)
[2024-04-10 08:41] LABS: ALBUMIN 3.4 g/dl (3.4-5.0)
[2024-04-10 08:43] LABS: CREATININE 0.9 mg/dL (0.55-1.3)
[2024-04-10 08:44] LABS: BILIRUBIN,TOTAL 2.9 mg/dL (0.2-1); TOT PROT 5.8 g/dl (6.4-8.2)
[2024-04-10] MEDS: HALOPERIDOL LACTATE 5 MG/ML IM PRN (13:49)
[2024-04-12 07:00] VITALS: PULSE 87
[2024-04-12 14:20] VITALS: BP 143/61; RESP 19; TEMP 98.1
== END 2024-04-12 14:33 | DRG 178 ==
LOC: JER 15:55 → JERBED 18:13 → J7W 04-01 18:56
PROVIDERS: ADMIT Internal Medicine; ATTEND Internal Medicine
PROC: XW033E5 Introduction of Remdesivir Anti-infective into Peripheral Vein, Percutaneous Approach, New Technology Group 5 (ICD-10-PCS; principal; 2024-03-31)
PROC: 30233N1 Transfusion of Nonautologous Red Blood Cells into Peripheral Vein, Percutaneous Approach (ICD-10-PCS; 2024-03-31)
DX: U07.1 COVID-19 (principal); D61.818 Other pancytopenia; E44.0 Moderate protein-calorie malnutrition; N17.9 Acute kidney failure, unspecified; N39.0 Urinary tract infection, site not specified; F02.A11 Dementia in other diseases classified elsewhere, mild, with agitation; S37.30XA Unspecified injury of urethra, initial encounter; G30.9 Alzheimer's disease, unspecified; N18.9 Chronic kidney disease, unspecified; E87.5 Hyperkalemia; D64.9 Anemia, unspecified; I12.9 Hypertensive chronic kidney disease with stage 1 through stage 4 chronic kidney disease, or unspecified chronic kidney disease; Z68.20 Body mass index [BMI] 20.0-20.9, adult; R62.7 Adult failure to thrive; E86.0 Dehydration; R31.0 Gross hematuria; X58.XXXA Exposure to other specified factors, initial encounter; Y93.9 Activity, unspecified; Y92.89 Other specified places as the place of occurrence of the external cause; Y99.9 Unspecified external cause status
CPT/HCPCS: 0241U-QW; 36415; 36430; 70450-TC; 71046-TC-FY; 76775-TC; 80048; 80053; 81003; 82272; 82728; 83540; 83550; 83605; 83735; 84100; 84466; 84484; 85025; 85045; 85610; 85730; 86140; 86850; 86900; 86901; 86922; 87040; 87086; 87635; 93005; 93010; 97116-GP; 97162-GP; 99285-25; J0248; P9058